=== PATIENT | female | born 1995 ===

== ENCOUNTER 2022-01-30 17:19 | Emergency (ER) | payer OTHER ==
[~2022-01-30] VITALS: Ht 160 cm; Wt 77.1 kg
== END 2022-01-30 19:13 | disposition home or self-care (01) ==
LOC: ER 17:19
DX: S06.0X0A Concussion without loss of consciousness, initial encounter (principal); W22.8XXA Striking against or struck by other objects, initial encounter
CPT/HCPCS: 99283